=== PATIENT | female | born 1965 | race Caucasian/White ===

== ENCOUNTER 2020-08-18 15:35 | Emergency (ER) | payer BC, SELFPAY ==
[2020-08-18 15:45] VITALS: BP 149/92; PULSE 63; RESP 20; TEMP 36.8; O2SAT 99
--- NOTE | 2020-08-18 15:59 | ED.SKABFB ---
HPI - Skin/Abscess/Foreign Bdy General Chief complaint: Skin/Abscess/Foreign Body Stated complaint: rash on all over body Time Seen by Provider: 08/18/20 15:59 Source: patient History of Present Illness HPI narrative: Patient presents with flea bites to both arms and legs and dry skin. Patient states she went to her primary care provider and was given a Medrol Dosepak and triamcinolone cream with no relief in her itching. MD complaint: insect bite/sting Related Data Home Medications Medication Instructions Recorded Confirmed alendronate 35 mg PO WEEKLY 08/18/20 08/18/20 alprazolam 0.5 mg PO BID 08/18/20 08/18/20 aspirin [Adult Aspirin EC Low 81 mg PO DAILY 08/18/20 08/18/20 Strength] cholecalciferol (vitamin D3) 125 mcg PO DAILY 08/18/20 08/18/20 [Vitamin D3] cyanocobalamin (vitamin B-12) 500 mcg PO DAILY 08/18/20 08/18/20 [Vitamin B-12] metoprolol tartrate 25 mg PO BID 08/18/20 08/18/20 triamterene-hydrochlorothiazid 1 cap PO DAILY 08/18/20 08/18/20 Allergies Allergy/AdvReac Type Severity Reaction Status Date / Time No Known Allergies Allergy Verified 08/18/20 16:02 Review of Systems Review of Systems: Narrative: CONSTITUTIONAL: Denies fever, chills, or sweats. EYES: Denies visual changes, redness, or discharge. ENT: Denies rhinorrhea, congestion, sore throat, or otalgia. CARDIOVASCULAR: Denies chest pain, palpitations, or edema. RESPIRATORY: Denies cough or dyspnea. GASTROINTESTINAL: Denies abdominal pain, nausea, vomiting, or diarrhea. GENITOURINARY: Denies dysuria or hematuria. SKIN: Denies rash or itching. Fleabites MUSCULOSKELETAL: Denies back pain, joint pain, or myalgia. NEUROLOGIC: Denies headache, numbness, or weakness. PSYCHIATRIC: Denies anxiety or depression. PMFSH Comments At time of signature, agree with nursing past medical, surgical, social and family history. There is no relevant family history pertinent to the presenting complaint Exam Narrative: Exam Narrative: GENERAL: Well-appearing, well-nourished, and in no acute distress. HEAD: Normocephalic, atraumatic. EYES: PERRLA and EOMI. ENT: Nares clear, no rhinorrhea or epistaxis. Mucous membranes moist. NECK: Supple. CHEST: Clear to auscultation. No respiratory distress. HEART: Regular rate and rhythm. No murmur heard. Normal peripheral pulses. ABDOMEN: Soft, nontender, nondistended, normal active bowel sounds. EXTREMITIES: Normal range of motion. No edema. SKIN: Warm, dry, no rash. NON SPECIFIC GENERALIZED RASH. NO FLUID FILLED LESIONS, NO VESICLES, NO HIVES OR URTICARIA, NO BURROWS OR RASH IN WEB SPACES TO INDICATE SCABIES, NO CONCERN FOR CELLULITIS OR ABSCESS FORMATION. NO PURPURA OR PETECHIA. DOES NOT INVOLVE THE SOLES OF FEET OR PALMS OF HANDS OR THE MUCOSAL MEMBRANES. NO SLOUGHING OR SWELLING OF TONGUE OR LIPS. Areas to both arms and lower extremities consistent with flea bites no concern for cellulitis NEURO: No focal deficits. Alert and oriented x3. Billie Coma Scale Eye Opening: Spontaneous 4 Billie Coma Scale Motor: Obeys Commands 6 Billie Coma Scale Verbal: Oriented 5 [place]on Coma Scale Total 15 Course Vital Signs Vital signs: Vital Signs Temperature 36.8 C 08/18/20 15:45 Pulse Rate 63 08/18/20 15:45 Respiratory Rate 20 08/18/20 15:45 Blood Pressure 149/92 H 08/18/20 15:45 Pulse Oximetry 99 08/18/20 15:45 Temperature 36.8 C 08/18/20 15:45 Pulse Rate 63 08/18/20 15:45 Respiratory Rate 20 08/18/20 15:45 Blood Pressure 149/92 H 08/18/20 15:45 Pulse Oximetry 99 08/18/20 15:45 Please DRISS schedule a followup visit with your personal physician for further evaluation and treatment. Including recheck and discussion of your blood pressure. If your symptoms persist, change or worsen significantly before you can contact your personal physician then please, without delay, go to the emergency department for further evaluation MDM - Skin/Abscess/Foreign Bdy Differential Diagnosis Differenti
== END 2020-08-18 16:11 | disposition home or self-care (01) ==
PROVIDERS: Emergency Provider Nurse Practitioner Family; PCP Family Medicine
DX: S40.862A Insect bite (nonvenomous) of left upper arm, initial encounter (principal); S40.861A Insect bite (nonvenomous) of right upper arm, initial encounter; S80.862A Insect bite (nonvenomous), left lower leg, initial encounter; S80.861A Insect bite (nonvenomous), right lower leg, initial encounter; W57.XXXA Bitten or stung by nonvenomous insect and other nonvenomous arthropods, initial encounter; E78.00 Pure hypercholesterolemia, unspecified; I10 Essential (primary) hypertension; M85.88 Other specified disorders of bone density and structure, other site; F41.9 Anxiety disorder, unspecified
CPT/HCPCS: 99203; G0463

== ENCOUNTER 2020-09-26 15:09 | Emergency (ER) | payer BC, SELFPAY ==
[2020-09-26 15:27] VITALS: BP 130/72; PULSE 70; RESP 20; TEMP 36.7; O2SAT 100
--- NOTE | 2020-09-26 15:53 | ED.FEMALEGU ---
HPI - Female Genitourinary General Chief complaint: Urogenital-Female Stated complaint: poss uti Time Seen by Provider: 09/26/20 15:44 Source: patient and RN notes reviewed Mode of arrival: ambulatory Limitations: no limitations History of Present Illness HPI Narrative: Patient presents today with a 3-day history of urinary frequency and urgency as well as lower abdominal pressure. Denies dysuria, hematuria, abdominal pain. Reports history of kidney stones and knows she has a few fragments of stones due to a CT scan 1 week ago. 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 The constant bouncing of the bus is causing her symptoms to worsen. She has tried no [id number] treatment for her symptoms prior to arrival. Related Data Home Medications Medication Instructions Recorded Confirmed alendronate 35 mg PO WEEKLY 08/18/20 09/26/20 alprazolam 0.5 mg PO BID 08/18/20 09/26/20 aspirin [Adult Aspirin EC Low 81 mg PO DAILY 08/18/20 08/18/20 Strength] atorvastatin 40 mg PO DAILY 08/18/20 09/26/20 cholecalciferol (vitamin D3) 125 mcg PO DAILY 08/18/20 08/18/20 [Vitamin D3] cyanocobalamin (vitamin B-12) 500 mcg PO DAILY 08/18/20 08/18/20 [Vitamin B-12] metoprolol tartrate 25 mg PO BID 08/18/20 09/26/20 triamterene-hydrochlorothiazid 1 cap PO DAILY 08/18/20 09/26/20 Allergies Allergy/AdvReac Type Severity Reaction Status Date / Time No Known Allergies Allergy Verified 09/26/20 15:48 Review of Systems Review of Systems: Narrative: CONSTITUTIONAL: Denies body aches, fever, chills, or sweats. EYES: Denies visual changes, redness, or discharge. ENT: Denies rhinorrhea, congestion, sore throat, or otalgia. CARDIOVASCULAR: Denies chest pain, palpitations, or edema. RESPIRATORY: Denies cough or dyspnea. GASTROINTESTINAL: Denies abdominal pain, nausea, vomiting, or diarrhea. GENITOURINARY: Denies dysuria or hematuria.+ Urgency, frequency SKIN: Denies rash, itching, or wounds. MUSCULOSKELETAL: Denies back pain, joint pain, or myalgia. NEUROLOGIC: Denies headache, numbness, tingling, or weakness. PSYCH: Denies depression or anxiety. [facility] Past Medical History Medical History (Updated 09/26/20 @ 15:58 by Kirsten Liu, [employer], ) History of kidney stones Hyperlipidemia Osteoporosis Comments At time of signature, I have reviewed and agree with nursing past medical, surgical, social and family history unless otherwise noted. Please see nursing chart for further information. There is no relevant family history pertinent to the presenting complaint Exam Narrative: Exam Narrative: GENERAL: Well-appearing, well-nourished, and in no acute distress. HEAD: Normocephalic, atraumatic. EYES: EOMI. No redness or drainage. Conjunctivae normal. ENT: Mucous membranes pink and moist. NECK: Normal AROM. CHEST: No respiratory distress. Clear to auscultation. HEART: Regular rate and rhythm. No murmur appreciated. Normal peripheral pulses. ABDOMEN: Soft, nontender, nondistended, normal active bowel sounds. -CVAT MUSCULOSKELETAL: No bony tenderness. EXTREMITIES: Normal range of motion. No edema. SKIN: Warm, dry, no rash. Capillary refill normal. Normal skin turgor. NEURO: No focal deficits. Alert and oriented x3. Gait steady. PSYCH: Normal affect. No signs of depression or anxiety. Course Vital Signs Vital signs: Vital Signs Temperature 98.0 F 09/26/20 15:27 Pulse Rate 70 09/26/20 15:27 Respiratory Rate 09/26/20 15:27 Blood Pressure 130/72 09/26/20 15:27 Pulse Oximetry 100 09/26/20 15:27 Temperature 98.0 F 09/26/20 15:27 Pulse Rate 70 09/26/20 15:27 Respiratory Rate 09/26/20 15:27 Blood Pressure 130/72 09/26/20 15:27 Pulse Oximetry 100 09/26/20 15:27 Reviewed. Pt has been instructed to follow up with her PCP regarding her elevated blood pressure today. MDM - Female Genitourinary Differential Diagnosis Differential diagnosis: Likely urinary tract inf
== END 2020-09-26 16:06 | disposition home or self-care (01) ==
PROVIDERS: Emergency Provider Nurse Practitioner; PCP Family Medicine
DX: N30.01 Acute cystitis with hematuria (principal); E78.5 Hyperlipidemia, unspecified; M81.0 Age-related osteoporosis without current pathological fracture; Z79.82 Long term (current) use of aspirin; I10 Essential (primary) hypertension; F41.9 Anxiety disorder, unspecified
CPT/HCPCS: 81003; 87086; 87088; 99213; G0463

== ENCOUNTER 2021-07-06 08:03 | Emergency (ER) | payer BC, SELFPAY ==
[2021-07-06 08:14] VITALS: BP 150/92; PULSE 64; RESP 18; TEMP 36.2; O2SAT 97
--- NOTE | 2021-07-06 08:16 | ED.FEMALEGU ---
HPI - Female Genitourinary General Chief complaint: Urogenital-Female Stated complaint: poss uti Source: patient Mode of arrival: ambulatory Limitations: no limitations History of Present Illness HPI Narrative: Patient is a 55-year-old female who presents complaining of frequency, dysuria and flank pain x3 days. She reports a history of UTIs. She reports a history of kidney stones with lithotripsy multiple times. Patient has an appointment with urology next week. She denies all other complaints at this time. She reports taking Azo [id number] with limited relief. Related Data Home Medications Medication Instructions Recorded Confirmed alprazolam 0.5 mg PO BID 08/18/20 07/06/21 aspirin [Adult Aspirin EC Low 81 mg PO DAILY 08/18/20 07/06/21 Strength] atorvastatin 40 mg PO DAILY 08/18/20 07/06/21 cholecalciferol (vitamin D3) 125 mcg PO DAILY 08/18/20 07/06/21 [Vitamin D3] cyanocobalamin (vitamin B-12) 500 mcg PO DAILY 08/18/20 07/06/21 [Vitamin B-12] metoprolol tartrate 25 mg PO BID 08/18/20 07/06/21 triamterene-hydrochlorothiazid 1 cap PO DAILY 08/18/20 07/06/21 Allergies Allergy/AdvReac Type Severity Reaction Status Date / Time No Known Allergies Allergy Verified 07/06/21 08:07 Review of Systems Review of Systems: CONSTITUTIONAL: Denies fever, chills, or sweats. EYES: Denies visual changes, redness, or discharge. ENT: Denies rhinorrhea, congestion, sore throat, or otalgia. CARDIOVASCULAR: Denies chest pain, palpitations, or edema. RESPIRATORY: Denies cough or dyspnea. GASTROINTESTINAL: Denies abdominal pain, nausea, vomiting, or diarrhea. GENITOURINARY: Reports dysuria, flank pain, frequency. SKIN: Denies rash or itching. MUSCULOSKELETAL: Denies back pain, joint pain, or myalgia. NEUROLOGIC: Denies headache, numbness, dizziness, or weakness. PSYCHIATRIC: Denies anxiety or depression. [facility] Past Medical History Medical History (Updated 07/06/21 @ 08:22 by GHADA Wilson) History of kidney stones HTN (hypertension) Hyperlipidemia Osteoporosis Surgical History Surgical History (Updated 07/06/21 @ 08:19 by GHADA Wilson) H/O lithotripsy Comments At the time of signature, I have reviewed and agree with nursing past medical, surgical, social, and family history unless otherwise noted. Please see nursing chart for further information. There is no relevant family history pertinent to the presenting complaint. Exam Narrative: GENERAL: Well-appearing, well-nourished, and in no acute distress. HEAD: Normocephalic, atraumatic. EYES: EOMI. No redness or drainage. ENT: Mucous membranes pink and moist. CHEST: No respiratory distress. HEART: Regular rate and rhythm. GI: Soft, nontender without rebound, or guarding. No distention. : Left CVA tenderness with palpation EXTREMITIES: Normal range of motion. No edema. SKIN: Warm, dry, no rash. NEURO: No focal deficits. Alert and oriented x3. Gait steady. PSYCH: Normal affect. No signs of depression or anxiety. Course Vital Signs Vital signs: Vital Signs Temperature 36.2 C L 07/06/21 08:14 Pulse Rate 64 07/06/21 08:14 Respiratory Rate 18 07/06/21 08:14 Blood Pressure 150/92 H 07/06/21 08:14 Pulse Oximetry 97 07/06/21 08:14 Temperature 36.2 C L 07/06/21 08:14 Pulse Rate 64 07/06/21 08:14 Respiratory Rate 18 07/06/21 08:14 Blood Pressure 150/92 H 07/06/21 08:14 Pulse Oximetry 97 07/06/21 08:14 MDM - Female Genitourinary [facility] Narrative Medical decision making narrative: Patient's UA shows no nitrates or leukocytes, trace blood. Patient has a history of kidney stones. Discussed with patient most likely possible kidney stone and further evaluation is warranted. Patient requesting treatment. Discussed with patient will treat because she is symptomatic at this time. Patient to follow-up with her urologist or in the ER. Patient aware warning signs. Patient is stable for discharge to home
== END 2021-07-06 08:35 | disposition home or self-care (01) ==
PROVIDERS: Emergency Provider Nurse Practitioner; PCP Family Medicine
DX: R10.9 Unspecified abdominal pain (principal); R35.0 Frequency of micturition; R30.0 Dysuria; I10 Essential (primary) hypertension; E78.5 Hyperlipidemia, unspecified; M81.0 Age-related osteoporosis without current pathological fracture
CPT/HCPCS: 81003; 99213; G0463